=== PATIENT | female | born 2000 | race Asian ===

== ENCOUNTER 2024-03-31 20:41 | Emergency (ER) | payer BC, MEDICAID ==
[~2024-03-31] VITALS: Ht 160 cm; Wt 49.0 kg
[2024-03-31 21:55] VITALS: O2SAT 100
[2024-04-01 00:39] LABS: HEMATOCRIT. 36.5 % (36.0-48.0); HEMOGLOBIN. 12.1 g/dL (12.0-16.0); MEAN CORPUSCULAR HEMOGLOBIN 30.8 pg (28.0-32.0); MEAN CORPUSCULAR HGB CONC 33.2 g/dL (31.0-37.0); MEAN CORPUSCULAR VOLUME 92.7 fL (81.0-99.0); MEAN PLATELET VOLUME 8.1 fl (7.4-10.4); PLATELET 262 x1000/uL (130-400); RED BLOOD CELL COUNT 3.94 mill/uL (4.2-5.4); RED CELL DISTRIBUTION WIDTH 12.4 % (11.6-14.6); WHITE BLOOD COUNT 11.8 x1000/uL (4.5-11.0)
[2024-04-01 00:41] LABS: DIFFERENTIAL COMMENT 1
[2024-04-01 00:42] LABS: CHLORIDE 102 mEq/L (98-107); POTASSIUM 3.6 mEq/L (3.5-5.1); SODIUM 140 mEq/L (136-145)
[2024-04-01 00:43] LABS: CALCIUM 9.3 mg/dL (8.7-10.4); CARBON DIOXIDE 28 mEq/L (21-32)
[2024-04-01 00:48] LABS: CREATININE 0.7 mg/dL (0.6-1.0); GLUCOSE 114 mg/dL (70-105); UREA NITROGEN BLOOD 9 mg/dL (9-23)
[2024-04-01 00:50] LABS: ALANINE AMINOTRANSFERASE 29 IU/L (10-49); ALBUMIN 4.1 g/dL (3.2-4.8); ASPARTATE AMINOTRANSFERASE 26 IU/L (<34); BILIRUBIN DIRECT 0.2 mg/dL (<=3.0); BILIRUBIN TOTAL 0.6 mg/dL (0.1-1.0); PROTEIN TOTAL 6.9 g/dL (6.0-8.3)
[2024-04-01] MEDS: ONDANSETRON HCL 4MG/2ML INJ IV STA (02:21)
[2024-04-01] MEDS: SODIUM CHLORIDE 0.9% 500 ML IV ONE (02:21)
[2024-04-01 03:43] LABS: CLARITY URINE CLEAR (CLEAR); COLOR URINE YELLOW (YELLOW); PH URINE 5.5 (4.5-8.0)
[2024-04-01 03:44] LABS: GLUCOSE URINE NEGATIVE (NEGATIVE); KETONES URINE NEGATIVE (NEGATIVE); NITRITE URINE POSITIVE (NEGATIVE); OCCULT BLOOD URINE TRACE (NEGATIVE); PROTEIN URINE 1+ (NEGATIVE)
[2024-04-01 03:45] LABS: UROBILINOGEN URINE 0.2 E.U./dL (0.2-1.0)
[2024-04-01 03:46] LABS: LEUKOCYTE ESTERASE URINE 1+ (NEGATIVE)
[2024-04-01] MEDS ORDERED: CEPH500C2 MT (03:54)
[2024-04-01] MEDS: CEFTRIAXONE 1GM/50ML 50 ML IV ONE (04:05)
[2024-04-01 04:27] VITALS: BP 99/59; PULSE 88; RESP 20; TEMP 36.83628; O2SAT 100
[2024-04-01 06:46] LABS: SQUAMOUS EPITHELIAL CELL URINE FEW /lpf (RARE/1+)
[2024-04-01 06:47] LABS: WBC URINE 15-25 /hpf (0-2)
[2024-04-01 06:48] LABS: RBC URINE 0-2 /hpf (0-2)
[2024-04-01 06:50] LABS: BACTERIA URINE 3+
[2024-04-01 13:04] LABS: PLATELET ESTIMATE NORMAL
== END 2024-04-01 04:29 | disposition home or self-care (01) ==
LOC: ER 20:41
DX: R11.2 Nausea with vomiting, unspecified (principal); N39.0 Urinary tract infection, site not specified; J45.909 Unspecified asthma, uncomplicated
CPT/HCPCS: 80076; 80048; 83690; 85025; 36415; 99284; 81003; 81025; 87086; 96361; 96365; 96375; J0696; J2405; J7030; Z7610